=== PATIENT | male | born 1980 ===

== ENCOUNTER 2018-11-01 18:02 | Emergency (ER) | payer MEDICAID ==
[~2018-11-01] VITALS: Ht 172.7 cm; Wt 72.7 kg
[2018-11-01 18:12] VITALS: BP 149/107
== END 2018-11-01 20:00 | disposition left against medical advice (07) ==
LOC: EMS 18:02
DX: M54.5 Low back pain (principal); G89.29 Other chronic pain; F17.210 Nicotine dependence, cigarettes, uncomplicated; Z53.21 Procedure and treatment not carried out due to patient leaving prior to being seen by health care provider